=== PATIENT | female | born 1990 | race Caucasian/White ===

== ENCOUNTER 2016-08-26 14:19 | Emergency (ER) | payer SELFPAY ==
[2016-08-26] MEDS ORDERED: Ondansetron 4 MG/2 ML SDV IVPUSH ONE (16:01)
[2016-08-26] MEDS ORDERED: Sodium Chloride 0.9% 2.5 ML Syringe FLUSH PRN (16:01)
[2016-08-26] MEDS ORDERED: Sodium Chloride 0.9% 1,000 ML IV ONE (16:01)
[2016-08-26] MEDS ORDERED: Pantoprazole 40 MG Vial IVPUSH ONE (16:01)
[2016-08-26] MEDS ORDERED: Sodium Chloride 0.9% 10 ML Syringe FLUSH PRN (16:01)
--- NOTE | 2016-08-26 16:04 | EDM.PDOC ---
ED HPI GENERAL MEDICAL PROBLEM - General Chief Complaint: Abdominal Pain Stated Complaint: VOMITTING BLOOD Time Seen by Provider: 08/26/16 15:51 - History of Present Illness INITIAL COMMENTS - FREE TEXT/NARRATIVE: HISTORY AND PHYSICAL: History of present illness: Patient is a 18-year-old female who presents with a three-day history of having diarrhea with blood in it and having a bloody emesis this morning. The patient states she has new diagnosis of peptic ulcer disease, Crohn's disease, diverticulitis and C. difficile which was diagnosed on a EGD/ colonoscopy done July 11 in [place]. Patient says she was following with a GI doctor there and had these tests performed and has recently relocated here to the [place]. Patient says she is on her second round of Flagyl for the C. difficile and she finished another antibiotic for the diverticulitis. She curre. Approximately one month ago the doctor in [place] her want to put her on a biologic for her Crohn's but because she was relocating they did not feel that was appropriate. Patient denies any fever chills upper respiratory symptoms but has had some sinus drainage. She has no chest pain or shortness of breath and she had bilateral tubal ligation and no GI surgery.ntly takes Zantac Prilosec and Carafate daily for the peptic ulcer disease. Patient states she's been watching her diet and really has no abdominal pain but is nauseated in the ER. She was not as concerned about the diarrhea with blood and she has had that in the past but she was concerned about vomiting with blood which occurred this morning. She is not lightheaded or dizzy and has no epigastric or chest pain. Review of systems: As per history of present illness and below otherwise all systems reviewed and negative. Past medical history: As per history of present illness and as reviewed below otherwise noncontributory. Surgical history: As per history of present illness and as reviewed below otherwise noncontributory. Social history: No reported history of drug or alcohol abuse. Family history: As per history of present illness and as reviewed below otherwise noncontributory. Physical exam: General: Well-developed overweight female who is nontoxic and speaking clearly and easily in ED. Vital signs blood noted by me. HEENT: Atraumatic, normocephalic, pupils reactive, negative for conjunctival pallor or scleral icterus, mucous membranes moist, throat clear, neck supple, nontender, trachea midline. Lungs: Clear to auscultation, breath sounds equal bilaterally, chest nontender. Heart: S1S2, regular, negative for clicks, rubs, or JVD. Abdomen: Soft, nondistended, nontender. There is no rebound guarding or tenderness appreciated on palpation. Bowel sounds are slightly hypoactive Negative for masses or hepatosplenomegaly. Negative for costovertebral tenderness. Pelvis: Stable nontender. Genitourinary: Deferred. Rectal: No fissures masses or lesions are appreciated and there is good tone. There is light brown stool high in the vault which is Hemoccult negative Extremities: Atraumatic, negative for cords or calf pain. Neurovascular unremarkable. Neuro: Awake, alert, oriented. Cranial nerves II through XII unremarkable. Cerebellum unremarkable. Motor and sensory unremarkable throughout. Exam nonfocal. Diagnostics: CBC CMP INR amylase lipase CT scan of the abdomen and pelvis Therapeutics: IV O2 monitor IV fluids Protonix Zofran toradol Patient has not had any vomiting in the ER and nausea she had any diarrhea. I discussed all testing results with the patient and at bedside and have recommended follow up in our family practice clinic and get referral to GI for further treatment. Advised her and reasons to return to the ER and I told her to continue and finish the medication that she has been prescribed from her doctor in [place]. Impression: Diarrhea with blood, one episode of hematemesis stable, history of Crohn's and C diff Definitive disposition and diagnosis as appropriate pending reevaluation and review of above. Left Upper Abdomen Pain Score (Numeric/FACES): 8 - Related Data Allergies Allergy/AdvReac Type Severity Reaction Status Date / Time adhesives Allergy Blisters Uncoded 08/26/16 15:37 Home Meds: Home Meds . [No Known Home Meds] 08/26/16 [History] ED ROS GENERAL - Review of Systems Review Of Systems: ROS reveals no pertinent complaints other than HPI. ED EXAM, GENERAL - Physical Exam Exam: See Below (See dictation) Course - Vital Signs Last Recorded V/S: Last Vital Signs Temp 36.2 C 08/26/16 15:42 Pulse 73 08/26/16 15:42 Resp 18 08/26/16 15:42 BP 129/59 L 08/26/16 15:42 Pulse Ox 97 08/26/16 15:42 - Orders/Labs/Meds Orders: Active Orders 24 hr Category Date Time Status Cardiac Monitoring [RC] . DIRECTED Care 08/26/16 16:00 Active Communication Order [RC] STAT Care 08/26/16 16:01 Active Pulse Oximetry [RC] ASDIRECTED Care 08/26/16 16:00 Active Abdomen Pelvis w Cont [CT] Stat Exams 08/26/16 16:01 Taken Sodium Chloride 0.9% [Saline Flush] Med 08/26/16 16:01 Active 10 ml FLUSH ASDIRECTED PRN Sodium Chloride 0.9% [Saline Flush] Med 08/26/16 16:01 Active 2.5 ml FLUSH ASDIRECTED PRN Saline Lock Insert [OM.PC] Stat Oth 08/26/16 16:00 Ordered Medication Orders Sodium Chloride (Saline Flush) 10 ml FLUSH ASDIRECTED PRN PRN Reason: Keep Vein Open Last Admin: 08/26/16 16:29 Dose: 10 ml Sodium Chloride (Saline Flush) 2.5 ml FLUSH ASDIRECTED PRN PRN Reason: Keep Vein Open Last Admin: 08/26/16 16:30 Dose: 2.5 ml Labs: Laboratory Tests 08/26/16 08/26/16 08/26/16 Range/Units 16:14 16:14 16:14 WBC 7.62 (4.0-11.0) K/uL RBC 3.86 L (4.30-5.90) M/uL Hgb 11.5 L (12.0-16.0) g/dL Hct 36.0 (36.0-46.0) % MCV 93.3 (80.0-98.0) fL MCH 29.8 (27.0-32.0) pg MCHC 31.9 (31.0-37.0) g/dL RDW Std Deviation 49.8 (28.0-62.0) fl RDW Coeff of Ronna 15 (11.0-15.0) % Plt Count 333 (150-400) K/uL MPV 10.20 (7.40-12.00) fL Neut % (Auto) 54.8 (48.0-80.0) % Lymph % (Auto) 36.0 (16.0-40.0) % Canadian % (Auto) 7.9 (0.0-15.0) % Eos % (Auto) 1.0 (0.0-7.0) % Baso % (Auto) 0.3 (0.0-1.5) % Neut # (Auto) 4.2 (1.4-5.7) K/uL Lymph # (Auto) 2.7 H (0.6-2.4) K/uL Canadian # (Auto) 0.6 (0.0-0.8) K/uL Eos # (Auto) 0.1 (0.0-0.7) K/uL Baso # (Auto) 0.0 (0.0-0.1) K/uL Nucleated RBC % 0.0 /100WBC Nucleated RBCs # 0 K/uL INR 0.92 (0.86-1.11) Sodium 141 (136-146) mmol/L Potassium 4.0 (3.5-5.1) mmol/L Chloride 108 (98-110) mmol/L Carbon Dioxide 22 (21-31) mmol/L BUN 14 (6.0-23.0) mg/dL Creatinine 0.7 (0.6-1.5) mg/dL Est Cr Clr Drug Dosing 103.32 mL/min Estimated GFR (MDRD) > 60.0 ml/min Glucose 87 (60-110) mg/dL Calcium 8.7 L (8.8-10.8) mg/dL Total Bilirubin 0.3 (0.1-1.5) mg/dL AST 18 (5-40) IU/L ALT 20 (8-54) IU/L Alkaline Phosphatase 91 (40-150) C-Reactive Protein (0.0-0.5) mg/dL Total Protein 7.4 (6.0-8.0) g/dL Albumin 3.7 (3.5-5.0) g/dL Globulin 3.7 H (2.0-3.5) g/dL Albumin/Globulin Ratio 1.0 L (1.3-2.8) Amylase 45 (10-90) U/L Lipase 20 (7-80) U/L // Range/Units 16:14 WBC (4.0-11.0) K/uL RBC (4.30-5.90) M/uL Hgb (12.0-16.0) g/dL Hct (36.0-46.0) % MCV (80.0-98.0) fL MCH (27.0-32.0) pg MCHC (31.0-37.0) g/dL RDW Std Deviation (28.0-62.0) fl RDW Coeff of Ronna (11.0-15.0) % Plt Count (150-400) K/uL MPV (7.40-12.00) fL Neut % (Auto) (48.0-80.0) % Lymph % (Auto) (16.0-40.0) % Canadian % (Auto) (0.0-15.0) % Eos % (Auto) (0.0-7.0) % Baso % (Auto) (0.0-1.5) % Neut # (Auto) (1.4-5.7) K/uL Lymph # (Auto) (0.6-2.4) K/uL Canadian # (Auto) (0.0-0.8) K/uL Eos # (Auto) (0.0-0.7) K/uL Baso # (Auto) (0.0-0.1) K/uL Nucleated RBC % /100WBC Nucleated RBCs # K/uL INR (0.86-1.11) Sodium (136-146) mmol/L Potassium (3.5-5.1) mmol/L Chloride (98-110) mmol/L Carbon Dioxide (21-31) mmol/L BUN (6.0-23.0) mg/dL Creatinine (0.6-1.5) mg/dL Est Cr Clr Drug Dosing mL/min Estimated GFR (MDRD) ml/min Glucose (60-110) mg/dL Calcium (8.8-10.8) mg/dL Total Bilirubin (0.1-1.5) mg/dL AST (5-40) IU/L ALT (8-54) IU/L Alkaline Phosphatase (40-150) C-Reactive Protein 0.74 H (0.0-0.5) mg/dL Total Protein (6.0-8.0) g/dL Albumin (3.5-5.0) g/dL Globulin (2.0-3.5) g/dL Albumin/Globulin Ratio (1.3-2.8) Amylase (10-90) U/L Lipase (7-80) U/L Meds: Medications Generic Name Dose Route Start Last Admin Trade Name Freq PRN Reason Stop Dose Admin Sodium Chloride 10 ml 08/26/16 16:01 08/26/16 16:29 Saline Flush FLUSH 10 ml ASDIRECTED PRN Administration Keep Vein Open Sodium Chloride 2.5 ml 08/26/16 16:01 08/26/16 16:30 Saline Flush FLUSH 2.5 ml ASDIRECTED PRN Administration Keep Vein Open Discontinued Medications Generic Name Dose Route Start Last Admin Trade Name Freq PRN Reason Stop Dose Admin Sodium Chloride 1,000 mls @ 999 mls/hr 08/26/16 16:01 08/26/16 16:29 Normal Saline IV 08/26/16 17:01 999 mls/hr STAT ONE Administration Iopamidol 100 ml 08/26/16 16:54 Isovue-370 (76%) IVPUSH 08/26/16 16:55 ONETIME STA Ketorolac Tromethamine 15 mg 08/26/16 16:33 08/26/16 16:41 Toradol IVPUSH 08/26/16 16:34 15 mg ONETIME ONE Administration Ondansetron HCl 4 mg 08/26/16 16:01 08/26/16 16:29 Zofran IVPUSH 08/26/16 16:02 4 mg ONETIME ONE Administration Pantoprazole Sodium 80 mg 08/26/16 16:01 08/26/16 16:28 Protonix Iv IVPUSH 08/26/16 16:02 80 mg .BOLUS ONE Administration Departure - Departure Time of Disposition: 18:38 Disposition: Home, Self-Care 01 Condition: good Clinical Impression: Diarrhea, History of hematemesis Forms: ED Department Discharge Additional Instructions: The following information is given to patients seen in the emergency department who are being discharged to home. This information is to outline your options for follow-up care. We provide all patients seen in our emergency department with a follow-up referral. The need for follow-up, as well as the timing and circumstances, are variable depending upon the specifics of your emergency department visit. If you don't have a primary care physician on staff, we will provide you with a referral. We always advise you to contact your personal physician following an emergency department visit to inform them of the circumstance of the visit and for follow-up with them and/or the need for any referrals to a consulting specialist. The emergency department will also refer you to a specialist when appropriate. This referral assures that you have the opportunity for followup care with a specialist. All of these measure are taken in an effort to provide you with optimal care, which includes your followup. Under all circumstances we always encourage you to contact your private physician who remains a resource for coordinating your care. When calling for followup care, please make the office aware that this follow-up is from your recent emergency room visit. If for any reason you are refused follow-up, please contact the [facility] emergency department at and ask to speak to the emergency department charge nurse. [facility] Primary care- Internal Medicine and Family [address] [address] Please call our clinic and schedule followup appointment in use/take all medications that you have at home. Once you get connected with the clinic they can refer you to GI. Please return to ER as needed and as discussed and push hydration. Use Zofran prescribed by [facility] as needed for nausea - My Orders Last 24 Hours: My Active Orders 08/26/16 16:00 Cardiac Monitoring [RC] . DIRECTED Pulse Oximetry [RC] ASDIRECTED Saline Lock Insert [OM.PC] Stat 08/26/16 16:01 Communication Order [RC] STAT Abdomen Pelvis w Cont [CT] Stat Sodium Chloride 0.9% [Saline Flush] 10 ml FLUSH ASDIRECTED PRN Sodium Chloride 0.9% [Saline Flush] 2.5 ml FLUSH ASDIRECTED PRN - Assessment/Plan Last 24 Hours: My Active Orders 08/26/16 16:00 Cardiac Monitoring [RC] . DIRECTED Pulse Oximetry [RC] ASDIRECTED Saline Lock Insert [OM.PC] Stat 08/26/16 16:01 Communication Order [RC] STAT Abdomen Pelvis w Cont [CT] Stat Sodium Chloride 0.9% [Saline Flush] 10 ml FLUSH ASDIRECTED PRN Sodium Chloride 0.9% [Saline Flush] 2.5 ml FLUSH ASDIRECTED PRN
[2016-08-26] MEDS ORDERED: Ketorolac 30 MG/ML SDV IVPUSH ONE (16:33)
[2016-08-26 16:41] LABS: CHLORIDE,CL 108 mmol/L (98-110); SODIUM,NA 141 mmol/L (136-146)
[2016-08-26] MEDS ORDERED: Iopamidol 755 Mg/ML 100 ML Bottle IVPUSH STA (16:54)
[2016-08-26 19:09] VITALS: BP 132/70
--- NOTE | 2016-08-27 19:09 | CT ---
EXAM DATE: 08/26/16 PATIENT'S AGE: 26 Patient: MELONIE DAUGHERTY Facility: [place], [place] Site . Site : 1990 Study: CT Abdomen/Pelvis [id number]/26/2017 6:08:38 PM Ordering Physician: Shell Beebe Final Report: Indication: Crohn`s disease. Nausea and vomiting and bloody diarrhea Technique : A CT volumetric acquisition was performed of the abdomen and pelvis during intravenous infusion of 100 cc of Isovue 370 nonionic intravenous contrast. Findings : The lung bases are clear. There is normal appearance of the liver, spleen and pancreas. The gallbladder is been resected. The bile ducts are normal size. The kidneys and adrenal glands appear normal. There is no evidence of retroperitoneal lymphadenopathy. The small bowel loops appear of normal size and there is no evidence of abnormal enhancement within the bowel wall. There is no evidence of inflammatory stranding within the mesenteric fat or significant mesenteric lymph node enlargement. There is no evidence of free air or fluid within the peritoneal cavity. The patient`s colon also appears normal. There is no evidence of inflammation about the rectum or ischial rectal fossa. The uterus and ovaries are normal size. The partially filled urinary bladder appears normal. Impression: No acute inflammatory change noted within the abdomen and pelvis. Dictated by Ventura Jenkins MD @ Aug 26 2016 6:24PM (Electronic Signature) Report Signed by Proxy and Original Signed Document filed in the Medical Record. JIMMY
== END 2016-08-26 19:08 | disposition home or self-care (01) ==
LOC: MW.ED 14:19
DX: K92.0 Hematemesis (principal); K92.1 Melena; K50.90 Crohn's disease, unspecified, without complications; Z91.048 Other nonmedicinal substance allergy status
CPT/HCPCS: 36415; 74177; 80053; 82150; 83690; 85025; 85610; 86140; 96361; 96374; 96375; 99285; C9113; J1885; J2405; J7040; 99284

== ENCOUNTER 2016-11-24 18:47 | Emergency (ER) | payer BC ==
--- NOTE | 2016-11-24 19:12 | EDM.PDOC ---
ED HPI GENERAL MEDICAL PROBLEM - General Chief Complaint: Skin Complaint Stated Complaint: TOOTH PAIN Time Seen by Provider: 11/24/16 19:00 - History of Present Illness INITIAL COMMENTS - FREE TEXT/NARRATIVE: HISTORY AND PHYSICAL: History of present illness: Patient is 26-year-old female status post mole removal of her right thigh was seen by several days prior for some discharge and thought it might be infected he wanted her monitor clinically and suggested she go to the ER if he gets worse and that he would see her on Saturday she is here now she states her been persistent discharge note fever reported no increased erythema warmth or other concern. Patient does have history of MRSA Review of systems: As per history of present illness and below otherwise all systems reviewed and negative. Past medical history: As per history of present illness and as reviewed below otherwise noncontributory. Surgical history: As per history of present illness and as reviewed below otherwise noncontributory. Social history: No reported history of drug or alcohol abuse. Family history: As per history of present illness and as reviewed below otherwise noncontributory. Physical exam: HEENT: Atraumatic, normocephalic, pupils reactive, negative for conjunctival pallor or scleral icterus, mucous membranes moist, throat clear, neck supple, nontender, trachea midline. Lungs: Clear to auscultation, breath sounds equal bilaterally, chest nontender. Heart: S1S2, regular, negative for clicks, rubs, or JVD. Abdomen: Soft, nondistended, nontender. Negative for masses or hepatosplenomegaly. Negative for costovertebral tenderness. Pelvis: Stable nontender. Genitourinary: Deferred. Rectal: Deferred. Extremities: Patient has a wound with sutures in place to her right side approximately 2 cm there are some scant yellowish discharge noted on the Band- Aid there is no fluctuance minimal erythema no significant induration neurovascular exams unremarkable Neuro: Awake, alert, oriented. Cranial nerves II through XII unremarkable. Cerebellum unremarkable. Motor and sensory unremarkable throughout. Exam nonfocal. Diagnostics: None Therapeutics: None Impression: #1 history of mole removal possible superinfection #2 history of MRSA Definitive disposition and diagnosis as appropriate pending reevaluation and review of above. - Related Data Allergies Allergy/AdvReac Type Severity Reaction Status Date / Time adhesives Allergy Blisters Uncoded 11/24/16 18:59 Home Meds: Home Meds Omeprazole 40 mg PO DAILY 11/24/16 [History] Sucralfate 1 gm PO DAILY 11/24/16 [History] buPROPion [Wellbutrin] 11/24/16 [History] Past Medical History Other Gastrointestinal History: Diverticulitis. Peptic ulcer Disease. Hemorrhoids. Crohn's Disease. C-diff [employer]ING INS[employer]OR History: Reports: - Infectious Disease History Infectious Disease History: Reports: Chicken Pox - Past Surgical History Female Surgical History: Reports: Section Social & Family History - Family History Family Medical History: Noncontributory - Tobacco Use Smoking Status *Q: Never Smoker Second Hand Smoke Exposure: No - Caffeine Use Caffeine Use: Reports: Coffee, Soda Caffeine Use Comment: "once in a while" - Recreational Drug Use Recreational Drug Use: No ED ROS GENERAL - Review of Systems Review Of Systems: ROS reveals no pertinent complaints other than HPI. ED EXAM, SKIN/RASH Exam: See Below (See dictation) Departure - Departure Time of Disposition: 19:12 Disposition: Home, Self-Care 01 Condition: Good Clinical Impression: Visit for wound check, Cellulitis - Discharge Information Forms: ED Department Discharge Additional Instructions: The following information is given to patients seen in the emergency department who are being discharged to home. This information is to outline your options for follow-up care. We provide all patients seen in our emergency department with a follow-up referral. The need for follow-up, as well as the timing and circumstances, are variable depending upon the specifics of your emergency department visit. If you don't have a primary care physician on staff, we will provide you with a referral. We always advise you to contact your personal physician following an emergency department visit to inform them of the circumstance of the visit and for follow-up with them and/or the need for any referrals to a consulting specialist. The emergency department will also refer you to a specialist when appropriate. This referral assures that you have the opportunity for followup care with a specialist. All of these measure are taken in an effort to provide you with optimal care, which includes your followup. Under all circumstances we always encourage you to contact your private physician who remains a resource for coordinating your care. When calling for followup care, please make the office aware that this follow-up is from your recent emergency room visit. If for any reason you are refused follow-up, please contact the [facility] emergency department at and asked to speak to the emergency department charge nurse. Bactrim/gentamicin as prescribed keep scheduled appointment with on Saturday return as needed as discussed
[2016-11-24 20:02] VITALS: BP 127/84
== END 2016-11-24 19:32 | disposition home or self-care (01) ==
LOC: MW.ED 18:47
DX: L03.115 Cellulitis of right lower limb (principal)
CPT/HCPCS: 99282; 99283

== ENCOUNTER 2017-06-07 17:46 | Emergency (ER) | payer BC ==
[2017-06-07 18:27] VITALS: BP 129/83
--- NOTE | 2017-06-07 18:35 | EDM.PDOC ---
ED HPI GENERAL MEDICAL PROBLEM - General Chief Complaint: Abdominal Pain Stated Complaint: ABDOMINAL PAIN Time Seen by Provider: 06/07/17 18:10 Source of Information: Reports: Patient History Limitations: Reports: No Limitations - History of Present Illness INITIAL COMMENTS - FREE TEXT/NARRATIVE: History of present illness: [A 7-year-old female comes in complaining of right upper quadrant pain. Patient indicates she has a diagnosis of ALVA H and that she is afraid that that is the problem. Patient indicates she does not have a gallbladder and that she was to have a follow-up appointment in 7 days with her primary care provider for lab work as well as potentially CT but that she passed out last night and apparently had told her when she woke that she didn't want to commend. Patient indicates she has no recollection of this event.] Review of systems: As per history of present illness and below otherwise all systems reviewed and negative. Past medical history: As per history of present illness and as reviewed below otherwise noncontributory. Surgical history: As per history of present illness and as reviewed below otherwise noncontributory. Social history: No reported history of drug or alcohol abuse. Family history: As per history of present illness and as reviewed below otherwise noncontributory. Physical exam: HEENT: Atraumatic, normocephalic, pupils reactive, negative for conjunctival pallor or scleral icterus, mucous membranes moist, throat clear, neck supple, nontender, trachea midline. Lungs: Clear to auscultation, breath sounds equal bilaterally, chest nontender. Heart: S1S2, regular, negative for clicks, rubs, or JVD. Abdomen: Soft, nondistended, nontender. Negative for masses or hepatosplenomegaly. Negative for costovertebral tenderness. Pelvis: Stable nontender. Genitourinary: Deferred. Rectal: Deferred. Extremities: Atraumatic, negative for cords or calf pain. Neurovascular unremarkable. Neuro: Awake, alert, oriented. Cranial nerves II through XII unremarkable. Cerebellum unremarkable. Motor and sensory unremarkable throughout. Exam nonfocal. Patient's lab work is benign. Patient CT is consistent with prior studies. Patient's complaints are consistent with a viral syndrome. Diagnostics: [CBC, CMP, CT of abdomen, amylase, lipase] Therapeutics: [] Impression: [Viral syndrome] Plan: [Zofran] Definitive disposition and diagnosis as appropriate pending reevaluation and review of above. Right Upper Abdomen Pain Score (Numeric/FACES): 9 - Related Data Allergies Allergy/AdvReac Type Severity Reaction Status Date / Time adhesives Allergy Blisters Uncoded 06/07/17 18:21 Home Meds: Home Meds Omeprazole 20 mg PO BID 11/24/16 [History] Past Medical History Cardiovascular History: Reports: None Respiratory History: Reports: None Other Gastrointestinal History: Diverticulitis. Peptic ulcer Disease. Hemorrhoids. Crohn's Disease. 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: Musculoskeletal History: Reports: None Neurological History: Reports: None Psychiatric History: Reports: None Endocrine/Metabolic History: Reports: None Hematologic History: Reports: None - Infectious Disease History Infectious Disease History: Reports: Chicken Pox - Past Surgical History Female Surgical History: Reports: Section Social & Family History - Family History Family Medical History: Noncontributory - Tobacco Use Smoking Status *Q: Never Smoker Second Hand Smoke Exposure: No - Caffeine Use Caffeine Use: Reports: Coffee, Soda Caffeine Use Comment: "once in a while" - Recreational Drug Use Recreational Drug Use: No ED ROS GENERAL - Review of Systems Review Of Systems: See Below (History of present illness) ED EXAM, GENERAL - Physical Exam Exam: See Below (CHPI) Course - Vital Signs Last Recorded V/S: Last Vital Signs Temp 37.0 C 06/07/17 18:24 Pulse 98 06/07/17 20:14 Resp 18 06/07/17 20:14 BP 129/83 06/07/17 18:24 Pulse Ox 100 06/07/17 20:14 - Orders/Labs/Meds Orders: Active Orders 24 hr Category Date Time Status Abdomen Pelvis w Cont [CT] Stat Exams 06/07/17 18:36 Taken Labs: Laboratory Tests 06/07/17 06/07/17 Range/Units 18:49 18:49 WBC 12.10 H (4.0-11.0) K/uL RBC 4.20 L (4.30-5.90) M/uL Hgb 13.2 (12.0-16.0) g/dL Hct 40.2 (36.0-46.0) % MCV 95.7 (80.0-98.0) fL MCH 31.4 (27.0-32.0) pg MCHC 32.8 (31.0-37.0) g/dL RDW Std Deviation 47.7 (28.0-62.0) fl RDW Coeff of Ronna 14 (11.0-15.0) % Plt Count 360 (150-400) K/uL MPV 10.10 (7.40-12.00) fL Neut % (Auto) 67.5 (48.0-80.0) % Lymph % (Auto) 24.8 (16.0-40.0) % [place] % (Auto) 6.8 (0.0-15.0) % Eos % (Auto) 0.7 (0.0-7.0) % Baso % (Auto) 0.2 (0.0-1.5) % Neut # (Auto) 8.2 H (1.4-5.7) K/uL Lymph # (Auto) 3.0 H (0.6-2.4) K/uL [place] # (Auto) 0.8 (0.0-0.8) K/uL Eos # (Auto) 0.1 (0.0-0.7) K/uL Baso # (Auto) 0.0 (0.0-0.1) K/uL Nucleated RBC % 0.0 /100WBC Nucleated RBCs # 0 K/uL Sodium 139 (136-146) mmol/L Potassium 4.2 (3.5-5.1) mmol/L Chloride 105 (98-110) mmol/L Carbon Dioxide 22 (21-31) mmol/L BUN 16 (6.0-23.0) mg/dL Creatinine 0.7 (0.6-1.5) mg/dL Est Cr Clr Drug Dosing 98.09 mL/min Estimated GFR (MDRD) > 60.0 ml/min Glucose 86 (60-110) mg/dL Calcium 10.0 (8.8-10.8) mg/dL Total Bilirubin 0.4 (0.1-1.5) mg/dL AST 20 (5-40) IU/L ALT 20 (8-54) IU/L Alkaline Phosphatase 83 (40-150) Total Protein 8.2 H (6.0-8.0) g/dL Albumin 4.1 (3.5-5.0) g/dL Globulin 4.1 H (2.0-3.5) g/dL Albumin/Globulin Ratio 1.0 L (1.3-2.8) Triglycerides 187 (10-190) mg/dL Cholesterol 276 H (131-240) mg/dL LDL Cholesterol, Calc 176 (60-180) mg/dL VLDL Cholesterol 37 (5-55) mg/dL HDL Cholesterol 63 (40-80) mg/dL Cholesterol/HDL Ratio 4.4 (3.3-6.0) Amylase 87 (10-90) U/L Lipase 17 (7-80) U/L Meds: Medications Discontinued Medications Generic Name Dose Route Start Last Admin Trade Name Freq PRN Reason Stop Dose Admin Sodium Chloride 1,000 mls @ 999 mls/hr 06/07/17 18:36 06/07/17 18:59 Normal Saline IV 06/07/17 19:36 999 mls/hr STAT ONE Administration Iopamidol 100 ml 06/07/17 19:48 06/07/17 19:49 Isovue Multipack-370 (76%) IVPUSH 06/07/17 19:49 100 ml ONETIME ONE Administration Ketorolac Tromethamine 60 mg 06/07/17 20:06 06/07/17 20:11 Toradol IM 06/07/17 20:07 Not Given ONETIME ONE Ketorolac Tromethamine 30 mg 06/07/17 20:09 06/07/17 20:13 Toradol IVPUSH 06/07/17 20:10 30 mg ONETIME ONE Administration Departure - Departure Time of Disposition: 20:27 Disposition: Home, Self-Care 01 Condition: Good Clinical Impression: Viral syndrome - Discharge Information Referrals: Heron Cruz MD [Primary Care Provider] - Forms: ED Department Discharge Additional Instructions: The following information is given to patients seen in the emergency department who are being discharged to home. This information is to outline your options for follow-up care. We provide all patients seen in our emergency department with a follow-up referral. The need for follow-up, as well as the timing and circumstances, are variable depending upon the specifics of your emergency department visit. If you don't have a primary care physician on staff, we will provide you with a referral. We always advise you to contact your personal physician following an emergency department visit to inform them of the circumstance of the visit and for follow-up with them and/or the need for any referrals to a consulting specialist. The emergency department will also refer you to a specialist when appropriate. This referral assures that you have the opportunity for follow-up care with a specialist. All of these measure are taken in an effort to provide you with optimal care, which includes your follow-up. Under all circumstances we always encourage you to contact your private physician who remains a resource for coordinating your care. When calling for follow-up care, please make the office aware that this follow-up is from your recent emergency room visit. If for any reason you are refused follow-up, please contact the [facility] Emergency Department at and asked to speak to the emergency department charge nurse. All your studies were benign and unchanged from previous studies or in fact improved Your symptoms that she came in describing could correlate well with viral syndrome that is currently being seen in the community. Please rest, hydrate and take Zofran as needed for any nausea and/or vomiting Follow-up with your PCP in 7 days as already scheduled Return to ED as needed as discussed - My Orders Last 24 Hours: My Active Orders 06/07/17 18:36 Abdomen Pelvis w Cont [CT] Stat - Assessment/Plan Last 24 Hours: My Active Orders 06/07/17 18:36 Abdomen Pelvis w Cont [CT] Stat
[2017-06-07] MEDS ORDERED: Sodium Chloride 0.9% 1,000 ML IV ONE (18:36)
[2017-06-07 19:19] LABS: CHLORIDE,CL 105 mmol/L (98-110); SODIUM,NA 139 mmol/L (136-146)
[2017-06-07] MEDS ORDERED: Iopamidol 755 MG/ML 200 ML Multipack Bottle IVPUSH ONE (19:48)
[2017-06-07] MEDS ORDERED: Ketorolac 60 MG/2 ML SDV IM ONE (20:06)
[2017-06-07] MEDS ORDERED: Ketorolac 30 MG/ML SDV IVPUSH ONE (20:09)
--- NOTE | 2017-06-10 09:27 | CT ---
EXAM DATE: 06/07/17 PATIENT'S AGE: 27 Patient: MELONIE DAUGHERTY Facility: [place], [place] Site . Site : 1988 Study: CT Abdomen/Pelvis W CONT [id number]/5/2018 7:53:26 PM Ordering Physician: Doctor Rodríguez Final Report: INDICATION: Right upper quadrant pain for 5 days. Patient states history of nonalcoholic steatohepatitis involving the liver. TECHNIQUE: CT abdomen and pelvis acquired with i.v. 100 mL Isovue 370. Coronal and sagittal reformats were obtained. COMPARISON: 08/26/2016. FINDINGS: Personal Attendant CT images: Somewhat limited by patient body habitus. Nonobstructive bowel gas pattern. Cholecystectomy surgical clips are noted in the right upper abdomen. Lower chest: Unremarkable. Liver: All diffuse low attenuation to the liver parenchyma, compatible with fatty infiltration. Liver capsule appears to be smoothly marginated. No focal liver lesion. Spleen: Unremarkable. Pancreas: Unremarkable. Gallbladder and bile ducts: Gallbladder is surgically absent. No abnormal biliary dilatation. Kidneys: Unremarkable. No kidney or ureteral stones and no hydronephrosis seen. Adrenal glands: Unremarkable. GI tract: Unremarkable. The appendix is normal in appearance and size. Vascular: Unremarkable. Lymph nodes: Unremarkable. Miscellaneous: Unremarkable. No pneumoperitoneum is seen. No significant ascites is noted. Pelvic Organs: Unremarkable. Bones: Unremarkable for age. IMPRESSION: 1. Enlarged liver with underlying fatty infiltration. No focal liver lesion or abdominal ascites. 2. Gallbladder surgically absent. No abnormal biliary dilatation. 3. No acute abnormality involving bowel loops. Prior study indicates clinical history Crohn`s disease. Dictated by Sebastián Celis MD @ 06/07/2017 8:20:56 PM Dictated by: Sebastián Celis MD @ 06/07/2017 20:21:07 (Electronic Signature) Report Signed by Proxy. [facility]
== END 2017-06-07 20:46 | disposition home or self-care (01) ==
LOC: MW.ED 17:46
DX: B34.9 Viral infection, unspecified (principal); Z91.048 Other nonmedicinal substance allergy status
CPT/HCPCS: 36415; 74177; 80053; 80061; 82150; 83690; 85025; 96361; 96374; 99284; J1885; J7040; Q9967

== ENCOUNTER 2017-07-27 19:16 | Emergency (ER) | payer BC ==
[2017-07-27] MEDS ORDERED: Alum Hydrox/Mag Hydrox/Simeth 15 ML, Metoclopramide 5 MG, Lidocaine 2% 5 ML PO ONE ×3 (19:49)
--- NOTE | 2017-07-27 19:52 | EDM.PDOC ---
ED HPI GENERAL MEDICAL PROBLEM - General Chief Complaint: ENT Problem Stated Complaint: SORE IN THROAT Time Seen by Provider: 07/27/17 19:50 Source of Information: Reports: Patient - History of Present Illness INITIAL COMMENTS - FREE TEXT/NARRATIVE: HISTORY AND PHYSICAL: History of present illness: [Obese 27-year-old female with anxiety and acid reflux presents with sensation of a lump in her throat as well as chest discomfort, I can reproduce chest discomfort with palpation along right and left sternal border she rates this pain 3 out of 10 there is no radiation arm neck or jaw there is no shortness of breath or diaphoresis Fever nausea vomiting chills sweats no headache dizziness or palpitation no bowel or urine symptoms ] Review of systems: As per history of present illness and below otherwise all systems reviewed and negative. Past medical history: As per history of present illness and as reviewed below otherwise noncontributory. Surgical history: As per history of present illness and as reviewed below otherwise noncontributory. Social history: No reported history of drug or alcohol abuse. Family history: As per history of present illness and as reviewed below otherwise noncontributory. Physical exam: HEENT: Atraumatic, normocephalic, pupils reactive, negative for conjunctival pallor or scleral icterus, mucous membranes moist, throat clear, neck supple, nontender, trachea midline. Lungs: Clear to auscultation, breath sounds equal bilaterally, chest nontender. Heart: S1S2, regular, negative for clicks, rubs, or JVD. Abdomen: Soft, nondistended, nontender. Negative for masses or hepatosplenomegaly. Negative for costovertebral tenderness. Pelvis: Stable nontender. Genitourinary: Deferred. Rectal: Deferred. Extremities: Atraumatic, negative for cords or calf pain. Neurovascular unremarkable. Neuro: Awake, alert, oriented. Cranial nerves II through XII unremarkable. Cerebellum unremarkable. Motor and sensory unremarkable throughout. Exam nonfocal. Diagnostics: [EKG ] Therapeutics: [GI cocktail Patient was scheduled for endoscopy last week however missed this due to her child having a seizure and ending up in [place] She is going to reschedule endoscopy ] Impression: [#1 the anxiety about health #2 GERD]--with GI cocktail lump sensation in throat resolved for 10-15 minutes post GI cocktail Definitive disposition and diagnosis as appropriate pending reevaluation and review of above. chest Pain Score (Numeric/FACES): 8 - Related Data Allergies Allergy/AdvReac Type Severity Reaction Status Date / Time adhesives Allergy Blisters Uncoded 07/27/17 19:28 Home Meds: Home Meds Omeprazole 40 mg PO BID 11/24/16 [History] Levothyroxine [Synthroid] 50 mcg PO DAILY 07/27/17 [History] Sucralfate [Carafate] 0 gm PO 07/27/17 [History] buPROPion [Wellbutrin] 150 mg PO DAILY 07/27/17 [History] Past Medical History HEENT History: Reports: None Cardiovascular History: Reports: None Respiratory History: Reports: None Other Gastrointestinal History: Diverticulitis. Peptic ulcer Disease. Hemorrhoids. Crohn's Disease. 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: Musculoskeletal History: Reports: None, Other (See Below) Other Musculoskeletal History: left foot fx Neurological History: Reports: None Psychiatric History: Reports: None Endocrine/Metabolic History: Reports: None Hematologic History: Reports: None - Infectious Disease History Infectious Disease History: Reports: Chicken Pox - Past Surgical History HEENT Surgical History: Reports: Adenoidectomy, Tonsillectomy Female Surgical History: Reports: Section Social & Family History - Family History Family Medical History: Noncontributory - Tobacco Use Smoking Status *Q: Never Smoker Second Hand Smoke Exposure: No - Caffeine Use Caffeine Use: Reports: Coffee Caffeine Use Comment: "once in a while" - Recreational Drug Use Recreational Drug Use: No ED ROS GENERAL - Review of Systems Review Of Systems: ROS reveals no pertinent complaints other than HPI. ED EXAM, GENERAL - Physical Exam Exam: See Below Course - Vital Signs Last Recorded V/S: Last Vital Signs Temp 97.3 F 07/27/17 19:30 Pulse 122 H 07/27/17 19:30 Resp 20 07/27/17 19:30 BP 191/82 H 07/27/17 19:30 Pulse Ox 100 07/27/17 19:30 - Orders/Labs/Meds Orders: Active Orders 24 hr Category Date Time Status Ranitidine [Zantac] Med 07/27/17 21:00 Active 150 mg PO BID Medication Orders Ranitidine HCl (Zantac) 150 mg PO BID ELLYN Last Admin: 07/27/17 20:35 Dose: 150 ml Meds: Medications Generic Name Dose Route Start Last Admin Trade Name Freq PRN Reason Stop Dose Admin Ranitidine HCl 150 mg 07/27/17 21:00 07/27/17 20:35 Zantac PO 150 ml BID ELLYN Administration Discontinued Medications Generic Name Dose Route Start Last Admin Trade Name Freq PRN Reason Stop Dose Admin Al Hydroxide/Mg Hydroxide 15 0 ml 07/27/17 19:49 07/27/17 20:09 ml/ Metoclopramide HCl 5 mg/ PO 07/27/17 19:50 25 each Lidocaine HCl 5 ml ONETIME ONE Administration Departure - Departure Time of Disposition: 20:53 Disposition: Home, Self-Care 01 Condition: Good Clinical Impression: GERD (gastroesophageal reflux disease) - Discharge Information Referrals: Heron Cruz MD [Primary Care Provider] - Forms: ED Department Discharge Additional Instructions: Avoid triggers of acid reflux as discussed for you chocolate and orange juice seemed to be contributors see if done well cutting out most other factors Continue Pepcid as directed Add Zantac 150 milligrams by mouth twice daily Mylanta may benefit Recommend rescheduling follow-up of endoscopy that you've missed last week at [facility] Follow-up with primary care as needed in the interim The following information is given to patients seen in the emergency department who are being discharged to home. This information is to outline your options for follow-up care. We provide all patients seen in our emergency department with a follow-up referral. The need for follow-up, as well as the timing and circumstances, are variable depending upon the specifics of your emergency department visit. If you don't have a primary care physician on staff, we will provide you with a referral. We always advise you to contact your personal physician following an emergency department visit to inform them of the circumstance of the visit and for follow-up with them and/or the need for any referrals to a consulting specialist. The emergency department will also refer you to a specialist when appropriate. This referral assures that you have the opportunity for follow-up care with a specialist. All of these measure are taken in an effort to provide you with optimal care, which includes your follow-up. Under all circumstances we always encourage you to contact your private physician who remains a resource for coordinating your care. When calling for follow-up care, please make the office aware that this follow-up is from your recent emergency room visit. If for any reason you are refused follow-up, please contact the [facility] emergency department at and asked to speak to the emergency department charge nurse. - My Orders Last 24 Hours: My Active Orders 07/27/17 21:00 Ranitidine [Zantac] 150 mg PO BID - Assessment/Plan Last 24 Hours: My Active Orders 07/27/17 21:00 Ranitidine [Zantac] 150 mg PO BID
[2017-07-27] MEDS ORDERED: Ranitidine 15 MG/ML Syrup 10 ML UD Cup PO SCH (21:00)
[2017-07-27 21:02] VITALS: BP 163/80
== END 2017-07-27 21:03 | disposition home or self-care (01) ==
LOC: MW.ED 19:16
DX: K21.9 Gastro-esophageal reflux disease without esophagitis (principal); F41.9 Anxiety disorder, unspecified; Z79.899 Other long term (current) drug therapy; Z91.048 Other nonmedicinal substance allergy status
CPT/HCPCS: 93005; 99284; A9270; 99283

== ENCOUNTER 2017-08-19 16:42 | Emergency (ER) | payer BC, MEDICAID ==
--- NOTE | 2017-08-19 17:00 | EDM.PDOC ---
ED HPI GENERAL MEDICAL PROBLEM - General Chief Complaint: MEDIA EXECUTIVE Problem Stated Complaint: POSS /BLEEDING Time Seen by Provider: 08/19/17 16:44 - History of Present Illness INITIAL COMMENTS - FREE TEXT/NARRATIVE: HISTORY AND PHYSICAL: History of present illness: Patient's 27-year-old female who is 18 months status post tubal ligation presents with concern of vaginal spotting she states she took home test 3 that was positive she notified her OB [employer] who referred her here for evaluation she denies pain vomiting or other concern Review of systems: As per history of present illness and below otherwise all systems reviewed and negative. Past medical history: As per history of present illness and as reviewed below otherwise noncontributory. Surgical history: As per history of present illness and as reviewed below otherwise noncontributory. Social history: No reported history of drug or alcohol abuse. Family history: As per history of present illness and as reviewed below otherwise noncontributory. Physical exam: HEENT: Atraumatic, normocephalic, pupils reactive, negative for conjunctival pallor or scleral icterus, mucous membranes moist, throat clear, neck supple, nontender, trachea midline. Lungs: Clear to auscultation, breath sounds equal bilaterally, chest nontender. Heart: S1S2, regular, negative for clicks, rubs, or JVD. Abdomen: Soft, nondistended, nontender. Negative for masses or hepatosplenomegaly. Negative for costovertebral tenderness. Pelvis: Stable nontender. Genitourinary: Deferred. Rectal: Deferred. Extremities: Atraumatic, negative for cords or calf pain. Neurovascular unremarkable. Neuro: Awake, alert, oriented. Cranial nerves II through XII unremarkable. Cerebellum unremarkable. Motor and sensory unremarkable throughout. Exam nonfocal. Diagnostics: CBC qualitative hCG quantitative hCG Therapeutics: To be determined Impression: #1 Vaginal bleeding #2 history of tubal ligation Definitive disposition and diagnosis as appropriate pending reevaluation and review of above. - Related Data Allergies Allergy/AdvReac Type Severity Reaction Status Date / Time adhesives Allergy Blisters Uncoded 07/27/17 19:28 Home Meds: Home Meds Omeprazole 40 mg PO BID 11/24/16 [History] Levothyroxine [Synthroid] 50 mcg PO DAILY 07/27/17 [History] Sucralfate [Carafate] 0 gm PO 07/27/17 [History] buPROPion [Wellbutrin] 150 mg PO DAILY 07/27/17 [History] Past Medical History HEENT History: Reports: None Cardiovascular History: Reports: None Respiratory History: Reports: None Other Gastrointestinal History: Diverticulitis. Peptic ulcer Disease. Hemorrhoids. Crohn's Disease. 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 History: Reports: None MEDIA EXECUTIVE History: Reports: Musculoskeletal History: Reports: None, Other (See Below) Other Musculoskeletal History: left foot fx Neurological History: Reports: None Psychiatric History: Reports: None Endocrine/Metabolic History: Reports: None Hematologic History: Reports: None - Infectious Disease History Infectious Disease History: Reports: Chicken Pox - Past Surgical History HEENT Surgical History: Reports: Adenoidectomy, Tonsillectomy Female Surgical History: Reports: Section Social & Family History - Family History Family Medical History: Noncontributory - Tobacco Use Smoking Status *Q: Never Smoker Second Hand Smoke Exposure: No - Caffeine Use Caffeine Use: Reports: Coffee Caffeine Use Comment: "once in a while" - Recreational Drug Use Recreational Drug Use: No ED ROS GENERAL - Review of Systems Review Of Systems: ROS reveals no pertinent complaints other than HPI. ED EXAM, GENERAL - Physical Exam Exam: See Below (Dictation) Course - Vital Signs Last Recorded V/S: Last Vital Signs Temp 37.0 C 08/19/17 17:02 Pulse 104 H 08/19/17 17:02 Resp 18 08/19/17 17:02 BP 134/92 H 08/19/17 17:02 Pulse Ox 98 08/19/17 17:02 - Orders/Labs/Meds Labs: Laboratory Tests 08/19/17 08/19/17 08/19/17 Range/Units 17:10 17:10 17:10 WBC 7.63 (4.0-11.0) K/uL RBC 4.03 L (4.30-5.90) M/uL Hgb 12.4 (12.0-16.0) g/dL Hct 38.4 (36.0-46.0) % MCV 95.3 (80.0-98.0) fL MCH 30.8 (27.0-32.0) pg MCHC 32.3 (31.0-37.0) g/dL RDW Std Deviation 47.5 (28.0-62.0) fl RDW Coeff of Ronna 14 (11.0-15.0) % Plt Count 352 (150-400) K/uL MPV 10.10 (7.40-12.00) fL Neut % (Auto) 56.5 (48.0-80.0) % Lymph % (Auto) 31.2 (16.0-40.0) % [place] % (Auto) 10.6 (0.0-15.0) % Eos % (Auto) 1.4 (0.0-7.0) % Baso % (Auto) 0.3 (0.0-1.5) % Neut # (Auto) 4.3 (1.4-5.7) K/uL Lymph # (Auto) 2.4 (0.6-2.4) K/uL [place] # (Auto) 0.8 (0.0-0.8) K/uL Eos # (Auto) 0.1 (0.0-0.7) K/uL Baso # (Auto) 0.0 (0.0-0.1) K/uL Nucleated RBC % 0.0 /100WBC Nucleated RBCs # 0 K/uL HCG, Qual NEGATIVE (NEG) HCG, Quant < 1.0 mIU/mL Departure - Departure Time of Disposition: 18:03 Disposition: Home, Self-Care 01 Condition: Good Clinical Impression: Vaginal bleeding - Discharge Information Referrals: Heron Cruz MD [Primary Care Provider] - Forms: ED Department Discharge Additional Instructions: The following information is given to patients seen in the emergency department who are being discharged to home. This information is to outline your options for follow-up care. We provide all patients seen in our emergency department with a follow-up referral. The need for follow-up, as well as the timing and circumstances, are variable depending upon the specifics of your emergency department visit. If you don't have a primary care physician on staff, we will provide you with a referral. We always advise you to contact your personal physician following an emergency department visit to inform them of the circumstance of the visit and for follow-up with them and/or the need for any referrals to a consulting specialist. The emergency department will also refer you to a specialist when appropriate. This referral assures that you have the opportunity for followup care with a specialist. All of these measure are taken in an effort to provide you with optimal care, which includes your followup. Under all circumstances we always encourage you to contact your private physician who remains a resource for coordinating your care. When calling for followup care, please make the office aware that this follow-up is from your recent emergency room visit. If for any reason you are refused follow-up, please contact the [facility] emergency department at and asked to speak to the emergency department charge nurse. Follow-up [facility]NA[facility] [employer] call to schedule appointment return as needed as discussed
[2017-08-19 17:08] VITALS: BP 134/92
== END 2017-08-19 18:36 | disposition home or self-care (01) ==
LOC: MW.ED 16:42
DX: N93.9 Abnormal uterine and vaginal bleeding, unspecified (principal); Z79.899 Other long term (current) drug therapy
CPT/HCPCS: 36415; 84702; 84703; 85025; 99282; 99284